=== PATIENT | male | born 1990 | race Caucasian/White ===

== ENCOUNTER 2021-08-01 15:49 | Emergency (ER) | payer OTHER ==
[~2021-08-01] VITALS: Ht 182.9 cm; Wt 93.0 kg
[~2021-08-01 15:49] MED LIST: ADDERALL PO; AMPDEX10 PO; HYDACE5 PO; IBUP600 PO; LIDO5TP TOP; LORA.5 PO; NAPR500 PO; NAPR550 PO; QUET200 PO; QUET300 PO; RISP3 PO; RXHYDACE PO; RXNAPNA550 PO; RXSULTRIDS PO; SULTRIDS PO; SULTRISS PO; TRAM50 PO; TRAZ50 PO
[2021-08-01 17:00] LABS: BASOPHILS ABSOLUTE AUTO 0.11 K/mm3 (0.00-0.23); BASOPHILS PERCENT AUTO 1 % (0-2); EOSINOPHILS ABSOLUTE AUTO 0.23 K/mm3 (0.00-0.68); EOSINOPHILS PERCENT AUTO 2 % (0-6); Hematocrit 44.3 % (37.0-53.0); Hemoglobin 15.1 g/dL (13.5-17.5); IMMATURE GRAN ABSOLUTE AUTO 0.07 K/mm3 (0.00-0.10); IMMATURE GRAN PERCENT AUTO 1 % (0-1); LYMPHOCYTES ABSOLUTE AUTO 2.78 K/mm3 (0.84-5.20); LYMPHOCYTES PERCENT AUTO 24 % (21-46); MONOCYTES ABSOLUTE AUTO 0.88 K/mm3 (0.16-1.47); MONOCYTES PERCENT AUTO 8 % (4-13); Mean Corpuscular HGB 33.9 pg (26.0-34.0); Mean Corpuscular HGB Conc 34.1 g/dL (31.5-36.5); Mean Corpuscular Volume 100 fL (80-100); Mean Platelet Volume 9.8 fL (9.1-12.4); NEUTROPHILS ABSOLUTE AUTO 7.37 K/mm3 (1.96-9.15); NEUTROPHILS PERCENT AUTO 64 % (41-73); Platelet Count 393 K/mm3 (150-400); RDW Coefficient Variation 11.9 % (11.7-14.2); RDW Standard Deviation 43.2 fL (35.1-46.3); Red Blood Cell Count 4.45 M/mm3 (4.30-5.90); White Blood Cell Count 11.44 K/mm3 (4.00-11.30)
[2021-08-01 17:20] LABS: Albumin, Blood 4.2 g/dL (3.4-5.0); Bilirubin, Total 0.2 mg/dL (0.1-1.0); Bun/Creatinine Ratio 14.7 (12.0-20.0); Calcium, Blood 9.5 mg/dL (8.5-10.1); Creatinine, Blood 0.75 mg/dL (0.60-1.20); Globulin, Blood 4.4 g/dL (2.2-4.0); Potassium, Blood 3.7 mmol/L (3.5-5.5); Total Protein, Blood 8.6 g/dL (6.4-8.2)
[2021-08-01 19:13] LABS: Lithium 0.98 mmol/L (0.60-1.20)
== END 2021-08-01 19:40 | disposition home or self-care (01) ==
LOC: ER 15:49
PROVIDERS: Physician Assistant
DX: R89.2 Abnormal level of other drugs, medicaments and biological substances in specimens from other organs, systems and tissues (principal); F15.90 Other stimulant use, unspecified, uncomplicated; K92.1 Melena; Z79.899 Other long term (current) drug therapy
CPT/HCPCS: 36415; 80053; 80178; 85025; J7030

== ENCOUNTER 2021-08-23 10:30 | Emergency (ER) | payer OTHER ==
[~2021-08-23] VITALS: Ht 188 cm; Wt 113.4 kg
== END 2021-08-23 11:07 | disposition left against medical advice (07) ==
LOC: ER 10:30
DX: F15.129 Other stimulant abuse with intoxication, unspecified (principal); Z79.899 Other long term (current) drug therapy; Z53.29 Procedure and treatment not carried out because of patient's decision for other reasons
CPT/HCPCS: 99281

== ENCOUNTER 2023-11-18 12:46 | Emergency (ER) | payer OTHER ==
[~2023-11-18] VITALS: Ht 182.9 cm; Wt 106.6 kg
[2023-11-18 12:54] VITALS: BP 140/112
[2023-11-18] MEDS ORDERED: Cephalexin Monohydrate 500 MG Cap PO ONE (13:20)
[2023-11-18] MEDS ORDERED: CEPH500 PO (13:21)
== END 2023-11-18 13:24 | disposition home or self-care (01) ==
LOC: ER 12:46
DX: L03.116 Cellulitis of left lower limb (principal); Z79.899 Other long term (current) drug therapy
CPT/HCPCS: 99283; A9270

== ENCOUNTER 2025-02-17 19:57 | Emergency (ER) | payer OTHER ==
[~2025-02-17] VITALS: Ht 175.3 cm; Wt 90.7 kg
[~2025-02-17 19:57] MED LIST changes: +CEPH500 PO
[2025-02-17 20:58] VITALS: BP 137/90
== END 2025-02-17 20:52 | disposition left against medical advice (07) ==
LOC: ER 19:57
DX: F29 Unspecified psychosis not due to a substance or known physiological condition (principal); F17.200 Nicotine dependence, unspecified, uncomplicated; Z53.29 Procedure and treatment not carried out because of patient's decision for other reasons; Z79.899 Other long term (current) drug therapy
CPT/HCPCS: 99284